=== PATIENT | female | born 1995 | race Caucasian/White ===

== ENCOUNTER → 2018-04-05 07:31 | Outpatient (CLI) | payer MEDICAID, SELFPAY ==
--- NOTE | 2018-04-05 07:45 | RAD_ITS ---
STUDY: X-RAY - ESOPHAGUS (BARIUM SWALLOW) WITH FLUOROSCOPY REASON FOR EXAM: Female, 22 years old. Dysphasia. TECHNIQUE: 24 view(s) of the esophagus were obtained following swallowing of barium. FLUOROSCOPY TIME (if supplied): (0:30) minutes/seconds COMPARISON: None. FINDINGS: There is no demonstrated esophageal foreign body. There is no demonstrated stricture or mucosal abnormality. Normal gastroesophageal junction, without a demonstrated hiatal hernia. The patient ingested a 12 mm tablet of barium without any difficulty. Normal visualized aortic arch and descending thoracic aorta. Normal visualized pulmonary parenchyma. Normal visualized osseous structures of the thorax. RAD/Esophagus Only IMPRESSION: Normal plain film x-ray examination (barium swallow) of the esophagus. Electronically Signed: Alexandro Blair MD at 8:59 EDT Tel [phone], Service support ,
== END ==
PROVIDERS: Visit Provider Otolaryngology
DX: R13.10 Dysphagia, unspecified (principal)
CPT/HCPCS: 74220

== ENCOUNTER 2019-05-27 18:35 | Emergency (ER) | payer MEDICAID, SELFPAY ==
[2019-05-27 18:37] VITALS: BP 162/94; PULSE 124; RESP 22; TEMP 36.3; O2SAT 98; BMI 49.6
[2019-05-27 19:00] VITALS: BP 151/102; PULSE 109; RESP 18; O2SAT 100
[2019-05-27 21:28] VITALS: BP 139/85
[2019-05-27 21:34] LABS: Absolute Neutrophil Count 4.4 X10^3/uL (2.0-7.7); Basophil# 0.06 X10^3/uL; Basophil% 0.7 % (0-1); Eosinophil# 0.12 X10^3/uL; Eosinophils% 1.4 % (0-5); Hematocrit 46.7 % (37-47); Hemoglobin 15.9 g/dL (12.0-15.0); Lymphocyte % 37.6 % (19-41); Mean Corpuscular Hgb 31.2 pg (27.0-32.0); Mean Corpuscular Volume 91.6 fL (81-99); Monocyte# 0.82 X10^3/uL; Monocyte% 9.4 % (0-10); NRBC Flagged by Analyzer 0 % (0-5); Neutrophil # 4.44 X10^3/uL (2.7-7.7); Neutrophil % 50.6 % (47-70); POSITIVE MORPHOLOGY YES; Platelet Count 176 K/mm3 (150-450); RBC Distribution Width CV 12.7 % (11.6-14.6); RBC Distribution Width SD 42.9 fl (35.1-43.9); White Blood Count 8.8 K/mm3 (4.4-11.0)
[2019-05-27 21:41] LABS: Differential Indicated SCAN CRITERIA MET
[2019-05-27] MEDS: 0.9% Normal Saline 1,000 ML 1000 ML IV (21:50)
[2019-05-27 21:54] LABS: Differential Comment SCANNED
[2019-05-27 21:55] LABS: Internal QC Validated? YES +Cl - CLEAR BKGD
[2019-05-27 21:59] LABS: Pregnancy, Serum, hCG Quali. NEGATIVE Negative
[2019-05-27 22:02] LABS: Anion Gap 8 (5-15); BUN 8 mg/dL (7-18); BUN/Creat Ratio 12.8 RATIO (10-20); Chloride 111 mmol/L (98-107); Creatinine, Serum 0.62 mg/dL (0.55-1.02); EST Glomerular Filtration Rate 126 mL/min (>60); Est Glom Filt Rate - Afr Amer 152 mL/min (>60); Glucose 88 mg/dL (74-106); Potassium 4.4 mmol/L (3.5-5.1); Sodium Level 140 mmol/L (136-145)
[2019-05-27 22:08] LABS: Alcohol, Blood (Medical)-Serum < 3.0 mg/dL
[2019-05-27 22:11] LABS: Amphetamine Urine VISTA POSITIVE (<1000 ng/mL); Barbiturate Urine VISTA NEGATIVE (< 200 ng/mL); Benzodiazepine Urine VISTA NEGATIVE (< 200 ng/mL); Cocaine Urine VISTA NEGATIVE (< 300 ng/mL); Ecstacy Urine VISTA NEGATIVE (< 500 ng/mL); Methadone Urine VISTA NEGATIVE (< 300 ng/mL); PCP Urine VISTA NEGATIVE (< 25 ng/mL); THC Urine VISTA POSITIVE (< 50 ng/mL); Vista UDS pH Range 6
--- NOTE | 2019-05-27 22:19 | ED.DCSUM_ITS ---
- ER Visit Summary Date of Service: 05/27/19 Chief Complaint: Skin mottling History of Present Illness: The patient is a 23 F who presents with mottling of her arms and legs which began today. Patient states she relapsed on methamphetamine early this morning. Patient noted some mottling of her skin today. Patient states she feels different than previous time she has used meth. Patient is concerned that there may have been something else in the methamphetamines. Patient states she had been sober for 3 months prior to using meth earlier this morning patient denies any chest pain or shortness of breath. Patient denies any nausea or vomiting. Physical Examination: Vital signs are stable. Patient is afebrile. Patient is in no acute distress. Oral mucosa is pink and moist. Neck is supple. Trachea is midline. There is no JVD noted. Heart was regular rate and rhythm. Lungs are clear and equal bilaterally. Abdomen is soft. Bowel sounds are normal. There is no tenderness. Cranial nerves II through XII are intact. There are no focal motor or sensory deficits noted. Test Results: CBC and basic metabolic profile within normal limits. Urine tox was positive for cannabinoids and methamphetamine. Serum alcohol level was normal. Emergency Department Course and Treatment: Patient was given IV fluids. Patient is feeling better on reevaluation. Patient was instructed to follow-up with her substance abuse counselors. Patient was instructed to follow-up with her primary care physician in 5 to 7 days. Patient understood and was agreeable with the plan. All questions were answered. Disposition: Discharge home Impression: Substance abuse This note was generated with myseekit dictation software. It may contain incorrect words, spelling, and punctuation that were not noted in review of the chart prior to signing ED Disposition - Plan for ED Patient: Disposition: Home or Assisted Living Diagnosis: Substance abuse Instructions: Drug Abuse Referrals: Care Physician,No Primary [Primary Care Provider] - 3-5 Days
[2019-05-27 22:41] LABS: Red Blood Cells-Urine 0 SEEN /hpf (0-5)
[2019-05-27 22:43] LABS: Color, Urine Yellow (Yellow); Glucose, Dipstick Normal (Normal); Leukocyte Esterase-Dipstick 500 /ul (Negative); Nitrite-Dipstick Negative (Negative); Occult Blood-Urine 10 /ul (Negative); Protein-Dipstick 30 mg/dl (Negative); Urine Bilirubin Dipstick Negative (Negative); Urine Clarity Sl. Cloudy (Clear); Urine Urobilinogen 1 mg/dl (Normal)
[2019-05-27 22:50] LABS: Ketone-Dipstick 150 mg/dl (Negative)
[2019-05-27 22:51] LABS: White Blood Cells 25-50 SEEN /hpf (0-5)
[2019-05-27 22:52] LABS: Bacteria 2+ /hpf (None Seen); Mucous, Urine 2+ /hpf (<or=2+)
[2019-05-27 22:57] LABS: Squamous Epithelial Cells - UA 5-10 SEEN /hpf (5-10)
== END 2019-05-27 22:30 | disposition home or self-care (01) ==
PROVIDERS: Emergency Provider Emergency Medicine
DX: F19.10 Other psychoactive substance abuse, uncomplicated (principal); M54.2 Cervicalgia; R51 Headache; H53.8 Other visual disturbances; E66.9 Obesity, unspecified; F12.90 Cannabis use, unspecified, uncomplicated; F17.200 Nicotine dependence, unspecified, uncomplicated
CPT/HCPCS: 80048; 80307; 80320; 81001; 84703; 85025; 96360; 99285; J7030; A4216; G0480

== ENCOUNTER 2021-03-25 23:37 | Emergency (ER) | payer MEDICAID, SELFPAY ==
[2021-03-25 23:37] VITALS: BP 135/83; PULSE 123; RESP 18; TEMP 36.8; O2SAT 98; BMI 44.9
--- NOTE | 2021-03-25 23:52 | RAD_ITS ---
STUDY: X-RAY - RIGHT KNEE REASON FOR EXAM: Female, 25 years old. Knee pain TECHNIQUE: 4 view(s) of the knee. COMPARISON: None. FINDINGS: Normal visualized distal femur. Normal visualized proximal tibia and fibula. Normal proximal tibiofibular articulation. Normal medial femorotibial compartment. Normal lateral femorotibial compartment. Normal patellofemoral articulation. The soft tissue structures are unremarkable. RAD/Knee 4 or More Views IMPRESSION: Normal x-ray examination of the knee. Electronically Signed: Flavio Madison DO at 0:27 EDT Tel , Service support ,
[2021-03-25] MEDS: Ketorolac 30 MG/ML Syringe IM (23:55)
--- NOTE | 2021-03-26 00:55 | ED.VIS.LOWEX ---
HPI History of Present Illness Chief Complaint: Lower Extremity Injury Narrative Narrative: Patient presenting for evaluation secondary to right knee pain. Patient states that approximately week ago she suffered a mechanical fall where she fell directly onto the front of her right knee. This was not a twisting injury. Initially she did not really have any pain. Over the course of the last 3 days however she has had a basically nontraumatic onset of pain in the right knee. Patient states that a continuous pain associated with a charley horse type feeling and swelling in the knee. Pain does not radiate up into the groin or down into the calf. No fevers chills night sweats unintended weight loss no recent history of injections or surgeries, no history of cancer, no history of control use she does smoke. No immunosuppression. No history of DVT or PE. No chest pain or shortness of breath or hemoptysis associated with this. She denies any history of IV drug abuse. Pain is worse with ambulation and movement. Review of systems otherwise negative. PFSH PFSH Home Medications naproxen 500 mg PO BID PRN #20 tab 03/26/21 [Rx Last Taken Unknown] Allergy/AdvReac Type Severity Reaction Status Date / Time CEFASPORIN Allergy Hives Uncoded 03/25/21 23:39 Social History Smoking Status: Current every day smoker tobacco type: cigarettes ROS ROS ED Constitutional Constitutional ED: Denies chills or fever(s) ENT ENT ED: Denies rhinorrhea Cardiovascular Cardiovascular: Denies chest pain Respiratory/Chest Respiratory/Chest: Denies cough or dyspnea Gastrointestinal Gastrointestinal: Denies abdominal pain, diarrhea, nausea or vomiting Genitourinary Genitourinary ED: Denies dysuria or hematuria Musculoskeletal Musculoskeletal: Reports arthralgias Integumentary Denies rash Neurologic Neurologic: Denies paresthesias or weakness Psychiatric Psychiatric: Denies depression Endocrine Endocrinology: Denies fatigue Allergic/Immunologic Allergic/Immunologic ED: Denies urticaria EXAM Physical Exam Const Vital Signs: 03/25/21 23:37 Temperature 98.3 F Temperature Source Temporal Pulse Rate 123 H Respiratory Rate 18 Blood Pressure 135/83 H Blood Pressure Mean 100 Pulse Ox 98 Oxygen Delivery Method Room Air Positive well nourished and well developed General Appearance ED: well developed and NAD HEENT Reports moist mucous membranes Negative for trauma or tenderness Eyes EOMs intact bilaterally Neck no lymphadenopathy, supple and no JVD Chest Wall inspection of chest normal Resp normal respiratory effort Cardio regular rate, regular rhythm and peripheral pulses 2+ throughout Cardio Narrative: Patient was tachycardic upon arrival, had normalization of her heart rate on my exam with normal pulses GI normal to inspection, nondistended, normoactive bowel sounds, non-tender and no masses Palpation: soft Back/Spine normal to inspection Extremity Extremity Narrative: Examination of the patient's right knee does show some swelling when compared to the left knee. There is diffuse joint line tenderness, there is minimal pain with range of motion no pain with short arc range of motion. No signs of erythema or warmth when compared to the contralateral joint. No laxity with Sergio, posterior drawer, varus, or valgus stress. General Extremety ED: Negative for tenderness Neuro oriented x3 and no sensory deficits noted Sensorium / Orientation: alert Motor Exam: strength 5/5 throughout Psych mental status grossly normal Skin no rashes or lesions noted MDM MDM MDM Narrative Medical decision making narrative: Patient presented with atraumatic leg pain. She was given Toradol for treatment of pain. Radiographs by my personal interpretation shows medial joint space narrowing, no evidence of acute process. I considered the possibility of DVT in this patient given her tachycardia on initial triage but her tachycardia completely normalized and other than smoking she does not have any signs or symptoms that would be consistent with that. Patient did have a fall that preceded this, it would seem that it is more likely that she had a slow development of some swelling in the knee that is ultimately causing her pain. She arrives recommended compression, she will be discharged with a course of Naprosyn. Patient will be given follow-up with orthopedics should she not start to have improvement of this pain. Patient was discharged in stable condition. Radiography Diagnostic Testing: Radiology Impression Knee X-Ray 03/25/21 23:52 IMPRESSION: Normal x-ray examination of the knee. Electronically Signed: Flavio Madison DO at 0:27 EDT Tel , Service support , Discharge Plan Triage Chief Complaint: Lower Extremity Injury ED Provider: Dylan Catalan Dx/Rx/DC Orders Clinical Impression: Acute pain of right knee Instructions: ED Knee Pain of Uncertain Cause Prescriptions: New naproxen 500 mg tablet 500 mg PO BID PRN Qty: 20 RF: 0 Primary Care Provider: Care Physician,No Primary Referrals: Palomo Davenport MD [STAFF PHYSICIAN] - As Needed Care Physician,No Primary [Primary Care Provider] - Disposition Disposition: Home, Self Care
== END 2021-03-26 01:05 | disposition home or self-care (01) ==
PROVIDERS: Emergency Provider Emergency Medicine
DX: M25.561 Pain in right knee (principal); W19.XXXA Unspecified fall, initial encounter; Y93.9 Activity, unspecified; Y92.9 Unspecified place or not applicable; F17.210 Nicotine dependence, cigarettes, uncomplicated
CPT/HCPCS: 73564; 96372; 99283

== ENCOUNTER 2021-05-24 20:14 | Emergency (ER) | payer MEDICAID, SELFPAY ==
[2021-05-24 20:15] VITALS: BP 144/85; PULSE 86; RESP 15; TEMP 36.4; O2SAT 97; BMI 42.9
[2021-05-24 20:17] VITALS: BP 144/85; PULSE 86; RESP 15; TEMP 36.4; O2SAT 97
--- NOTE | 2021-05-24 20:20 | RAD_ITS ---
STUDY: X-RAY CHEST REASON FOR EXAM: Female, 25 years old. PALPITATIONS TECHNIQUE: Frontal view COMPARISON: None. FINDINGS: The lungs are clear and expanded. There is no demonstrated pleural abnormality. Normal size heart. Normal mediastinum and january. Normal visualized pulmonary arteries. Normal visualized aortic arch and descending thoracic aorta. Normal visualized thoracic spine. Normal visualized ribs, clavicles, and shoulders. There is no demonstrated abnormality of the visualized soft tissue structures of the upper abdomen. RAD/Chest 1 View IMPRESSION: Normal x-ray examination of the chest. Electronically Signed: Petar John DO at 21:10 EDT Tel [phone], Service support ,
--- NOTE | 2021-05-24 21:19 | EKG12_ITS ---
Test Reason : PALPITATIONS Blood Pressure : / mmHG Vent. Rate : 059 BPM Atrial Rate : 059 BPM P-R Int : 150 ms QRS Dur : 092 ms QT Int : 434 ms P-R-T Axes : 023 014 003 degrees QTc Int : 429 ms Sinus bradycardia Otherwise normal ECG Confirmed by ARACELI RIOS, ELY ([id number]), multimedia editor RANDA BENDER ([id number]) on 05/27/2021 8:09:28 AM Referred By: HAYDEN Confirmed By:ANA M CHARLES MD
[2021-05-24 21:43] LABS: Absolute Lymphocyte Count 3.94 X10^3/uL (0.83-4.51); Absolute Neutrophil Count 6.4 X10^3/uL (2.0-7.7); Basophil# 0.04 X10^3/uL; Basophil% 0.4 % (0-1); Eosinophil# 0.04 X10^3/uL; Eosinophils% 0.4 % (0-5); Hematocrit 40.4 % (37-47); Lymphocyte # 3.94 X10^3/ul (0.83-4.51); Lymphocyte % 35.2 % (19-41); Mean Corp Hgb Conc 34.7 g/dL (32-36); Mean Corpuscular Hgb 31.3 pg (27.0-32.0); Mean Corpuscular Volume 90.4 fL (81-99); Mean Platelet Vol. 10.1 fl (6.2-12.0); Monocyte# 0.71 X10^3/uL; Monocyte% 6.3 % (0-10); NRBC Flagged by Analyzer 0 % (0-5); Neutrophil # 6.43 X10^3/uL (2.7-7.7); Neutrophil % 57.4 % (47-70); Platelet Count 224 K/mm3 (150-450); RBC Distribution Width CV 12.7 % (11.6-14.6); RBC Distribution Width SD 41.8 fl (35.1-43.9); Red Blood Count 4.47 M/mm3 (4.2-5.4); White Blood Count 11.2 K/mm3 (4.4-11.0)
[2021-05-24 21:46] LABS: Internal QC Validated? YES +Cl - CLEAR BKGD; Pregnancy, Urine Negative Negative
[2021-05-24] MEDS: Ondansetron 4 MG/2 ML Vial IV (21:48)
[2021-05-24] MEDS: LORazepam 2 MG/ML Syringe 1 MG IV (21:48)
[2021-05-24] MEDS: 0.9% Normal Saline 1,000 ML 999 ML IV (21:48)
[2021-05-24 22:07] LABS: Anion Gap 5 (5-15); BUN 8 mg/dL (7-18); BUN/Creat Ratio 13.1 RATIO (10-20); Calcium,Total 8.8 mg/dL (8.5-10.1); Chloride 112 mmol/L (98-107); Creatinine, Serum 0.61 mg/dL (0.55-1.02); EST Glomerular Filtration Rate 127 mL/min (>60); Est Glom Filt Rate - Afr Amer 154 mL/min (>60); Glucose 91 mg/dL (74-106); Magnesium 2.1 mg/dL (1.6-2.6); Potassium 3.4 mmol/L (3.5-5.1); Sodium Level 141 mmol/L (136-145); Thyroid Stim Hormone (TSH) 1.09 uIU/mL (0.358-3.74)
--- NOTE | 2021-05-24 22:53 | EDS_ITS ---
HPI History of Present Illness Chief Complaint: Palpitations Narrative Narrative: Patient states that over the past few days she has had a sensation of anxiety associated with heart palpitations and a lump in her throat. She denies any illicit drugs history of cardiac disease at a young age or family history of heart disease. She does states that she recently stopped caffeine cold turkey and was typically doing over 1000 mg/day. PFSH PFSH Home Medications ondansetron HCl [Zofran] 4 mg PO Q8H PRN #21 tab 05/24/21 [Rx Last Taken Unknown] Allergy/AdvReac Type Severity Reaction Status Date / Time CEFASPORIN Allergy Hives Uncoded 03/25/21 23:39 FLU Allergy Swelling Uncoded 05/24/21 20:18 Social History Smoking Status: Current every day smoker tobacco type: cigarettes ROS ROS ED Constitutional Constitutional ED: Denies chills or fever(s) Eyes Eyes: Denies change in vision ENT ENT ED: Reports sore throat; Denies rhinorrhea Cardiovascular Cardiovascular: Reports palpitations; Denies chest pain Respiratory/Chest Respiratory/Chest: Denies cough or dyspnea Gastrointestinal Gastrointestinal: Reports nausea; Denies abdominal pain or vomiting Genitourinary Genitourinary ED: Denies dysuria Musculoskeletal Musculoskeletal: Reports myalgias Integumentary Denies rash Neurologic Neurologic: Denies headache(s) Psychiatric Psychiatric: Reports anxiety EXAM Physical Exam Const Vital Signs: 05/24/21 20:15 05/24/21 20:17 05/24/21 20:55 Temperature 97.6 F L 97.6 F L Temperature Source Temporal Temporal Pulse Rate 86 86 Respiratory Rate 15 15 Respiratory Effort Normal Non-Labored Blood Pressure 144/85 H 144/85 H Blood Pressure Mean 104 104 Pulse Ox 97 97 Oxygen Delivery Method Room Air Room Air Positive well nourished and well developed General Appearance ED: well developed HEENT HEENT Narrative: No tongue or lip swelling no oral lesions no airway edema or compromise Eyes PERRL and EOMs intact bilaterally Neck supple Neck Narrative: No crepitance noted thyroid is without nodule or goiter Resp normal respiratory effort and clear to auscultation bilaterally Cardio regular rate and regular rhythm GI non-tender and non-distended Auscultation: normoactive bowel sounds Palpation: soft Extremity normal to inspection Neuro oriented x3 and CN's II-XII intact bilaterally Sensorium / Orientation: alert Psych Mood & Affect: anxious Skin no rashes or lesions noted MDM MDM MDM Narrative Medical decision making narrative: Patient presented to the ER with stable vitals. Her exam is nonfocal and on her EKG and on the equipment monitor phototypesetting there is no dysrhythmia or ectopic beats noted. She reported she recently stopped over 1000 mg of caffeine per day cold turkey. With her symptoms of palpitations a lump in her throat nausea and anxiety do feel she is going through acute caffeine withdrawal. Basic labs were obtained which showed no clinically significant findings. After IV fluids Zofran and Ativan patient reported feeling much better. Therefore at this time I will prescribe Zofran to help keep the nausea better and she was advised to begin approximately 300 mg of caffeine a day to help prevent any further withdrawal symptoms Lab Data Labs: Laboratory Results - last 24 hr 05/24/21 05/24/21 05/24/21 21:30 21:35 21:35 WBC 11.2 H RBC 4.47 Hgb 14.0 Hct 40.4 MCV 90.4 MCH 31.3 MCHC 34.7 RDW Std Deviation 41.8 RDW Coeff of Mary 12.7 Plt Count 224 MPV 10.1 Immature Gran % (Auto) 0.300 Neut % (Auto) 57.4 Lymph % (Auto) 35.2 [place] % (Auto) 6.3 Eos % (Auto) 0.4 Baso % (Auto) 0.4 Absolute Neuts (auto) 6.4 Absolute Lymphs (auto) 3.94 Nucleated RBC % 0 Sodium 141 Potassium 3.4 L Chloride 112 H Carbon Dioxide 24.0 Anion Gap 5 BUN 8 Creatinine 0.61 Estim Creat Clear Calc 122.80 Est GFR (MDRD) Af Amer 154 Est GFR (MDRD) Non-Af 127 BUN/Creatinine Ratio 13.1 Glucose 91 Calcium 8.8 Magnesium 2.1 TSH 1.09 Urine Test Negative Radiography Diagnostic Testing: Radiology Impression Chest X-Ray 05/24/21 20:20 IMPRESSION: Normal x-ray examination of the chest. Electronically Signed: Petar Jhon DO at 21:10 EDT Tel [phone], Service support , Discharge Plan Triage Chief Complaint: Palpitations ED Provider: Beto Hassan Dx/Rx/DC Orders Clinical Impression: Heart palpitations, Withdrawal syndrome Instructions: ED Palpitations Prescriptions: New ondansetron HCl [Zofran] 4 mg tablet 4 mg PO Q8H PRN (Reason: nausea and vomiting) Qty: 21 RF: 0 Primary Care Provider: Care Physician,No Primary Referrals: Tenisha Cazares MD [STAFF PHYSICIAN] - Care Physician,No Primary [Primary Care Provider] - Disposition Disposition: Home, Self Care
[2021-05-24 23:13] VITALS: BP 133/91; PULSE 74; RESP 15; O2SAT 100
== END 2021-05-24 23:20 | disposition home or self-care (01) ==
PROVIDERS: Emergency Provider Emergency Medicine
DX: R00.2 Palpitations (principal); F15.23 Other stimulant dependence with withdrawal; F17.210 Nicotine dependence, cigarettes, uncomplicated
CPT/HCPCS: 71045; 80048; 81025; 83735; 84443; 85025; 93005; 96361; 96374; 96375; 99282; J7030; A4216; J2405

== ENCOUNTER 2021-10-24 10:54 | Outpatient (CLI) | payer MEDICAID, SELFPAY ==
[2021-10-24 11:14] LABS: Absolute Lymphocyte Count 2.09 X10^3/uL (0.83-4.51); Absolute Neutrophil Count 5.5 X10^3/uL (2.0-7.7); Basophil# 0.03 X10^3/uL; Basophil% 0.4 % (0-1); Eosinophil# 0.08 X10^3/uL; Hematocrit 43.8 % (37-47); Hemoglobin 15.3 g/dL (12.0-15.0); Lymphocyte # 2.09 X10^3/ul (0.83-4.51); Lymphocyte % 25.1 % (19-41); Mean Corp Hgb Conc 34.9 g/dL (32-36); Mean Corpuscular Hgb 32.5 pg (27.0-32.0); Mean Platelet Vol. 9.7 fl (6.2-12.0); Monocyte# 0.59 X10^3/uL; Monocyte% 7.1 % (0-10); NRBC Flagged by Analyzer 0 % (0-5); Neutrophil # 5.52 X10^3/uL (2.7-7.7); Neutrophil % 66.2 % (47-70); Platelet Count 190 K/mm3 (150-450); RBC Distribution Width CV 12.6 % (11.6-14.6); RBC Distribution Width SD 43.6 fl (35.1-43.9); Red Blood Count 4.71 M/mm3 (4.2-5.4); White Blood Count 8.3 K/mm3 (4.4-11.0)
[2021-10-24 12:36] LABS: HIV - WCH Non-Reactive (Nonreactive); Hepatitis B Surface Antigen Non-Reactive (Nonreactive); Hepatitis C Antibody Non-Reactive (Nonreactive); Rubella IgG Reactive (Nonreactive); Syphilis Antibodies Non-reactive
[2021-10-27 01:06] LABS: Chlamydia By Nucleic Acid AMP Negative (Negative)
[2021-10-27 09:54] LABS: Gonococcus By Nucleic Acid AMP Negative (Negative)
[2021-10-28 12:25] LABS: HPV Reflexed? NOT INDICATED
== END 2021-10-24 23:59 | disposition short-term general hospital (02) ==
LOC: WOBLAB 10:56
PROVIDERS: Visit Provider Obstetrics & Gynecology
DX: Z12.4 Encounter for screening for malignant neoplasm of cervix (principal); Z11.3 Encounter for screening for infections with a predominantly sexual mode of transmission; Z34.81 Encounter for supervision of other normal pregnancy, first trimester
CPT/HCPCS: 36415; 85025; 86703; 86762; 86780; 86803; 87086; 87088; 87340; 87491; 87591; 88175; G0145

== ENCOUNTER → 2022-03-09 | Outpatient (CLI) | payer MEDICAID, SELFPAY ==
[2022-03-09 12:01] LABS: Hematocrit 36.6 % (37-47); Hemoglobin 12.4 g/dL (12.0-15.0); Mean Corp Hgb Conc 33.9 g/dL (32-36); Mean Corpuscular Hgb 32.9 pg (27.0-32.0); Mean Corpuscular Volume 97.1 fL (81-99); Mean Platelet Vol. 10.2 fl (6.2-12.0); Platelet Count 206 K/mm3 (150-450); RBC Distribution Width CV 13.2 % (11.6-14.6); RBC Distribution Width SD 47.2 fl (35.1-43.9); Red Blood Count 3.77 M/mm3 (4.2-5.4); White Blood Count 11.1 K/mm3 (4.4-11.0)
[2022-03-09 12:11] LABS: Glucose Challenge Gest 1H 50g 92 mg/dL (70-140)
== END | disposition home or self-care (01) ==
PROVIDERS: Visit Provider Obstetrics & Gynecology
DX: Z34.83 Encounter for supervision of other normal pregnancy, third trimester (principal)
CPT/HCPCS: 36415; 82950; 85027

== ENCOUNTER 2022-03-15 17:39 | Emergency (ER) | payer MEDICAID, SELFPAY ==
[2022-03-15 17:40] VITALS: BP 127/74; PULSE 94; RESP 14; TEMP 36.6; O2SAT 100; BMI 39.1
--- NOTE | 2022-03-15 18:27 | EX.ED.GENINJ ---
HPI History of Present Illness Chief Complaint: Head Injury Informant: patient Narrative Narrative: G1, P0 [address] Mckinnon presents for evaluation work-related injury an hour prior to arrival. Was in the cooler when 16 ounce glass bottle of juice came from the top hitting the top of her head. Headache since then no nausea or vomiting no LOC. Patient only on vitamins. No neck or back pain. No abdominal injury. She does feel the baby move. Denies any other symptoms. No history of head injury or concussions in the past. Prior similar symptoms: No PFSH PFSH Medical History no medical history Allergy/AdvReac Type Severity Reaction Status Date / Time Influenza Virus Vaccines Allergy Swelling Verified 03/15/22 17:43 CEFASPORIN Allergy Hives Uncoded 03/15/22 17:42 Social History Smoking Status: Current every day smoker tobacco type: cigarettes ROS ROS ED Constitutional Constitutional ED: Denies chills, fever(s) or sweats Eyes Eyes: Denies change in vision ENT ENT ED: Denies dysphagia or sore throat Cardiovascular Cardiovascular: Denies chest pain, leg edema, palpitations or racing heartbeat Respiratory/Chest Respiratory/Chest: Denies cough, dyspnea or dyspnea on exertion Gastrointestinal Gastrointestinal: Denies abdominal pain, diarrhea, nausea or vomiting Genitourinary Genitourinary ED: Denies dysuria, hematuria or urinary frequency Musculoskeletal Musculoskeletal: Denies back pain, extremity pain or neck pain Integumentary Denies rash or wounds Neurologic Neurologic: Reports headache(s); Denies paresthesias or weakness EXAM Physical Exam Const Vital Signs: 03/15/22 17:40 03/15/22 18:11 03/15/22 19:39 Temperature 97.9 F Temperature Source Temporal Pulse Rate 94 79 Respiratory Rate 14 18 Respiratory Effort Normal Non-Labored Respiratory Depth Normal Respiratory Pattern Normal Blood Pressure 127/74 H Blood Pressure Mean 91 Pulse Ox 100 96 Oxygen Delivery Method Room Air Room Air Positive well nourished and well developed Constitutional Narrative: GCS 15. General Appearance ED: well developed and NAD HEENT Reports moist mucous membranes HEENT Narrative: Small scalp hematoma left frontal, no lacerations. No hemotympanums. normocephalic Eyes PERRL, EOMs intact bilaterally and conjunctivae normal General Eye ED: Yes normal appearance of both eyes Neck full ROM, no lymphadenopathy and supple Neck Narrative: No midline tenderness. No meningismus. General: Negative for tenderness Chest Wall Chest: Negative for tenderness Resp normal respiratory effort and normal air movement Effort and Inspection: symmetric chest movement; Negative for respiratory distress Cardio regular rate, regular rhythm and no murmurs Peripheral Pulses: pulses 2+ throughout GI normal to inspection, nondistended, normoactive bowel sounds and non-tender Palpation: Negative for guarding or rebound tenderness present Back/Spine no CVA tenderness and no thoracic nor lumbar tenderness Extremity normal to inspection General Extremety ED: Negative for edema or tenderness General Extremity: Negative for edema Neuro oriented x3, CN's II-XII intact bilaterally and no sensory deficits noted Sensorium / Orientation: awake and alert Skin no rashes or lesions noted and no wounds MDM MDM MDM Narrative Medical decision making narrative: Patient presents head injury with small scalp hematoma frontal area. Low mechanism. Headache. Concussion with precaution discussed with patient. She started on Tylenol. heart tones was 147. She is reassured. She is given appropriate work restrictions for rest. She will follow-up with occupational health. Discharge Plan Triage Chief Complaint: Head Injury ED Provider: Cleveland Armas Dx/Rx/DC Orders Clinical Impression: Concussion without loss of consciousness, Hematoma of frontal scalp, Third trimester Instructions: Concussion Dc, ED Scalp Contusion Primary Care Provider: Care Physician,No Primary Referrals: Care Physician,No Primary [Primary Care Provider] - Activity Restrictions/Additional Instructions: Use Tylenol as needed. Follow-up with occupational health. Disposition Disposition: Home, Self Care Discharge Date/Time: 03/15/22 19:39
[2022-03-15] MEDS: Acetaminophen 500 MG Tablet 1000 MG PO (18:54)
[2022-03-15 19:39] VITALS: PULSE 79; RESP 18; O2SAT 96
== END 2022-03-15 19:39 | disposition home or self-care (01) ==
PROVIDERS: Emergency Provider Emergency Medicine; Visit Provider Emergency Medicine
DX: O9A.212 Injury, poisoning and certain other consequences of external causes complicating pregnancy, second trimester (principal); S00.03XA Contusion of scalp, initial encounter; F17.210 Nicotine dependence, cigarettes, uncomplicated; S06.0X0A Concussion without loss of consciousness, initial encounter; O99.332 Smoking (tobacco) complicating pregnancy, second trimester; W22.8XXA Striking against or struck by other objects, initial encounter; Z3A.27 27 weeks gestation of pregnancy
CPT/HCPCS: 99283

== ENCOUNTER → 2022-05-19 | Outpatient (CLI) | payer MEDICAID, SELFPAY | END | disposition home or self-care (01) | LOC: LABSPEC 15:20 | PROVIDERS: Visit Provider Obstetrics & Gynecology | DX: Z36.85 Encounter for antenatal screening for Streptococcus B (principal) | CPT/HCPCS: 87081 ==

== ENCOUNTER 2022-06-18 16:20 | Inpatient (IN) | payer MEDICAID, SELFPAY ==
[2022-06-18] VITALS (12 sets, daily range): BP systolic 107–125; BP diastolic 56–78; PULSE 78–93; TEMP 36.4–37.4; O2SAT 96–100; BMI 45.3
[2022-06-18] MEDS: Lactated Ringers 1,000 ML 50 ML IV (17:00)
[2022-06-18 17:17] LABS: Absolute Lymphocyte Count 2.67 X10^3/uL (0.83-4.51); Absolute Neutrophil Count 12.4 X10^3/uL (2.0-7.7); Basophil# 0.05 X10^3/uL; Basophil% 0.3 % (0-1); Eosinophil# 0.21 X10^3/uL; Eosinophils% 1.3 % (0-5); Hemoglobin 13.5 g/dL (12.0-15.0); Lymphocyte # 2.67 X10^3/ul (0.83-4.51); Mean Corp Hgb Conc 33.8 g/dL (32-36); Mean Corpuscular Hgb 31.8 pg (27.0-32.0); Mean Corpuscular Volume 94.1 fL (81-99); Mean Platelet Vol. 10.9 fl (6.2-12.0); Monocyte# 1.31 X10^3/uL; Monocyte% 7.8 % (0-10); NRBC Flagged by Analyzer 0 % (0-5); Neutrophil # 12.36 X10^3/uL (2.7-7.7); Neutrophil % 73.8 % (47-70); Platelet Count 216 K/mm3 (150-450); RBC Distribution Width SD 44.8 fl (35.1-43.9); Red Blood Count 4.25 M/mm3 (4.2-5.4); White Blood Count 16.7 K/mm3 (4.4-11.0)
[2022-06-18 17:45] LABS: Amphetamine Urine VISTA NEGATIVE (<1000 ng/mL); Barbiturate Urine VISTA NEGATIVE (< 200 ng/mL); Benzodiazepine Urine VISTA NEGATIVE (< 200 ng/mL); Cocaine Urine VISTA NEGATIVE (< 300 ng/mL); Ecstacy Urine VISTA NEGATIVE (< 500 ng/mL); Methadone Urine VISTA NEGATIVE (< 300 ng/mL); PCP Urine VISTA NEGATIVE (< 25 ng/mL); THC Urine VISTA NEGATIVE (< 50 ng/mL); Vista UDS pH Range 6
[2022-06-18] MEDS: Oxytocin 30 units/NS 500 ml 30 UNITS/500 ML IV.SOLN IV (18:15)
--- NOTE | 2022-06-18 18:22 | PCM.HP.BLA ---
History and Physical Date of Admission: 06/18/22 Chief complaint: Induction of labor at term History present illness: 26-year-old at 41 weeks and 1 day with ALINA 06/10/2022 arrives for induction of labor at term. Denies headache, vision changes, chest pain, shortness of breath, nausea vomit, right upper quadrant pain. Obstetric history: G1: Current Past medical history: None Medications: vitamin Past surgical history: Tonsils and adenoids, colonoscopy Allergies: Cefzil Social history: 1 pack/day smoker, denies alcohol or drug use Family history: Denies history DVT or PE Review of systems: Besides above pertinent positives a full review of systems was performed and found to be negative Physical exam: Vitals: Blood pressure 115/68 pulse 85 temp 97.8 Fahrenheit General: Normal-appearing no acute distress HEENT: Normocephalic/atraumatic no cervical lymphadenopathy Cardiac/respiratory: No use of accessory muscles, nonlabored breathing Abdomen: Soft, nontender, gravid Extremities: No peripheral edema normal peripheral pulses Psych: Normal affect normal demeanor nonpressured speech Labs: Platelet cell count 16.7 hemoglobin 13.5 hematocrit 40.0% platelets 216. Blood type O+ antibody negative Assessment plan: 26-year-old G1, P0 at 41 weeks arrives for induction of labor at term Admit labor and delivery CEFM GBS negative Pitocin induction Routine orders Anesthesia to see
[2022-06-18] MEDS: Acetaminophen 500 MG Tablet PO (21:01)
[2022-06-18] MEDS: fentaNYL 100 MCG/2 ML Ampul IV (21:53)
[2022-06-18] MEDS: LACTATED RINGERS 500 ML 999 ML IV (23:23)
[2022-06-19] VITALS (42 sets, daily range): BP systolic 106–147; BP diastolic 55–78; PULSE 71–95; RESP 16–18; TEMP 36.3–37.4; O2SAT 79–99
[2022-06-19] MEDS: fentaNYL-bupivacaine (epidural) 100 ML BAG EPIDURAL (00:18)
[2022-06-19 02:23] LABS: ROM Internal Control Test YES-OK TO RESULT pt. (Internal QC)
[2022-06-19 02:24] LABS: ROM Patient Test POSITIVE (Negative)
[2022-06-19] MEDS: LACTATED RINGERS 500 ML 999 ML IV (02:43)
[2022-06-19] MEDS: Lactated Ringers 1,000 ML 200 ML IV (03:30)
[2022-06-19] MEDS: Oxytocin 30 units/NS 500 ml 30 UNITS/500 ML IV.SOLN 334 UNITS IV (05:14)
[2022-06-19] MEDS: Methylergonovine 0.2 MG/ML Ampul IM (05:20)
--- NOTE | 2022-06-19 05:40 | OP.PCM_ITS ---
Vaginal Delivery Findings Description of Procedure: Preop diagnosis: Term, nonreassuring heart tones Postop diagnosis: Term, nonreassuring heart tones Procedure: Vacuum-assisted vaginal delivery Surgeon: Lan Mckinnon MD Anesthesia: Epidural EBL: 400 cc Complications: None Findings: Male infant in vertex position Apgars 7/9. Second-degree midline perineal laceration right labial laceration. Prophylactic IM Methergine given with short second stage of labor and operative delivery. Consent: Patient arrived for 41-week induction of labor at term, progressed to complete dilation. 1 attempt at maternal pushing with prolonged deceleration. Called by nursing, nursing called OB ERT. Arrived for evaluation and operating room with anesthesia and cycle repairer present. head palpated to be AIMEE +2 station. Pelvis felt adequate for vaginal delivery. Patient with epidural for pain relief. Educated patient on options including vacuum assisted vaginal delivery. Patient desired to proceed with vacuum-assisted vaginal delivery and understood including cephalhematoma or shoulder dystocia. Process of vacuum delivery was explained. Procedure: Patient with Arora catheter present. Vaginal examination reconfirmed AIMEE +2 station. Kiwi vacuum was applied over the sagittal suture about 3 cm in from the posterior fontanelle toward the face. Vacuum pressure was applied. Edge of the cup was carefully examined and no maternal tissue was entrapped under the cup. Right hand applied gentle horizontal traction along the pelvic access in coordination with uterine contractions maternal pushing. Progressive descent was noted with each pull. 3 pulls were performed. The handle of the vacuum device was gradually elevated when the perineum began to bulge. The cup did not pop off the head throughout the procedure. The cup was removed. Shoulders delivered with ease. Cord was clamped and cut. Baby was handed off to patient and nursing. Placenta was delivered via cord traction and fundal massage. IV oxytocin was initiated in order to facilitate uterine contractions. Prophylactic IM Methergine was given with quick and second stage and operative delivery. Cervix and vaginal wall were thoroughly examined. Second-degree midline perineal laceration and right labial laceration were noted and repaired in typical fashion. The infant was examined after delivery. No visible lacerations or bruises were noted.
[2022-06-19] MEDS: Acetaminophen 500 MG Tablet 1000 MG PO ×2 (06:32→20:26)
[2022-06-19] MEDS: Ibuprofen 600 MG Tablet PO ×2 (06:32→11:57)
[2022-06-19] MEDS: 0.9% Saline Lock 10 ML Syringe IV (08:55)
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
[2022-06-20] VITALS: BP 111/54; PULSE 93; RESP 18
[2022-06-20] MEDS: Ibuprofen 600 MG Tablet PO ×2 (00:04→08:32)
[2022-06-20 05:40] VITALS: BP 103/56; PULSE 77; RESP 18
[2022-06-20 05:41] VITALS: BP 103/56; PULSE 77
[2022-06-20 08:17] VITALS: BP 112/57; PULSE 83; RESP 16; TEMP 36.6
[2022-06-20] MEDS: Acetaminophen 500 MG Tablet 1000 MG PO (10:55)
--- NOTE | 2022-06-20 10:58 | PCM.DC.BLA ---
Discharge Summary Date of Admission: 06/18/22 Date of Discharge: 06/20/22 Summary: Patient arrived on 06/18/2022 for induction of labor at term. Subsequently delivered via vacuum-assisted vaginal delivery for nonreassuring heart tones on 06/19/2022. Routine recovery. Discharge home on 06/20/2022 Meaningful Use Info Meaningful Use Diagnoses (Choose all that apply): None applicable Discharge Plan Admission Admit Date/Time: 06/18/22 16:20 Primary Reason for Your Visit: Induction of labor term Attending Provider: Lan Mckinnon Primary Care Provider: Dayanara Alfonso Primary Instructions Additional Instructions / Restrictions: Regular diet. Ambulate as tolerated. Weightbearing as tolerated. Okay to shower. No intercourse for 4 to 6 weeks. Call if fevers, chills, chest pain, shortness of breath. Follow-up 4 to 6 weeks Discharge Orders/Prescriptions Prescriptions: No Action Gummies 400 mcg-35 mg- 25 mg-5 mg Tablet,Chewable 2 tab PO DAILY Referrals / Follow Up: Care Physician,No Primary [Primary Care Provider] - Disposition Disposition (needs filled in before D/C Order can be placed): Home, Self Care
--- NOTE | 2022-06-20 10:59 | PCM.PN.OB ---
Subjective Subjective No overnight complaints Objective Data Objective Data Vital Signs: Vital Signs Temp Pulse Resp BP Pulse Ox O2 Del Method 97.9 F 83 16 112/57 L 97 Room Air 06/20/22 08:17 06/20/22 08:17 06/20/22 08:17 06/20/22 08:17 06/19/22 11:54 06/20/22 08:17 Oxygen Delivery Method Room Air Weight: 289 lb 10.998 oz Body Mass Index (BMI) 45.3 Intake & Output: Intake and Output for Last 24 Hours 06/18/22 06/19/22 06/20/22 23:59 23:59 23:59 Intake Total 831.91 / 831.91 1985.66 / 1984. Output Total 425 / 425 860 / 860 Balance 406.91 / 406.91 1125.66 / 1125.66 Lab / Micro Data Result Diagrams: 06/18/22 17:00 Physical Exam Const alert, oriented x3, no apparent distress, average body habitus, healthy appearing and well nourished HEENT normocephalic and moist oral mucous membranes Eyes PERRL Neck full ROM Resp normal respiratory effort, no retractions and no use of accessory muscles GI GI Narrative: Soft, nontender, uterus firm and below umbilicus Extremity normal to inspection, full ROM and no clubbing, cyanosis or edema Neuro moves all extremities and no focal motor deficits Psych mental status grossly normal, affect normal, speech normal and activity/motor behavior normal Assessment & Plan (1) Vaginal delivery: PLAN: day 1 status post vacuum-assisted vaginal delivery for nonreassuring heart tones. Formula feeding. Pain well controlled. Okay to discharge home today if okay with patient insurance clerk
[2022-06-20 14:40] VITALS: BP 128/70; PULSE 87; RESP 16; TEMP 36.8
--- NOTE | 2022-06-22 10:17 | NURSING ---
06/21/22- Follow up phone call questions asked by Blanca Herrera NP-IBCLC at pt's follow up [address] [facility] appt. No s+s reports, pt. doing well.
--- NOTE | 2022-06-29 16:25 | CASEMGMT ---
Social Work Labor and Delivery Meconium Drug screen results are back and negative for any drugs of abuse. No further referrals are indicated. -KAYLEN Almanza, DIRECT OF REAL ESTATE
== END 2022-06-20 18:50 | disposition home or self-care (01) | DRG 560 ==
PROVIDERS: Admitting Provider Obstetrics & Gynecology; Visit Provider Obstetrics & Gynecology
DX: O99.334 Smoking (tobacco) complicating childbirth (principal); Z37.0 Single live birth; F17.200 Nicotine dependence, unspecified, uncomplicated; O76 Abnormality in fetal heart rate and rhythm complicating labor and delivery; O70.1 Second degree perineal laceration during delivery; Z3A.41 41 weeks gestation of pregnancy
CPT/HCPCS: 59025; 59050; 80307; 84112; 85025; 86850; 86900; 86901; 99218; J7120; A4216; G0378